=== PATIENT | female | born 1965 | race Caucasian/White ===

== ENCOUNTER 2017-06-14 15:36 | Inpatient (IN) | payer MEDICAID ==
[~2017-06-14] VITALS: Ht 147.3 cm; Wt 50.8 kg
[~2017-06-14 15:36] MED LIST: BG MC; CIPROFLOXACIN500 MG PO; GLU10 PO; LAC PO; METFORMIN HCL1000 MG PO
[2017-06-14 19:17] LABS: microscopic required? YES; urine erythrocyte 2+ (NEGATIVE)
[2017-06-14 19:18] LABS: BASOPHIL % 0.1 % (0-2); PLATELET COUNT 247 x10^3mcL (130-400); RED CELL DISTRIBUTION WIDTH 13.6 % (11.5-14.5)
[2017-06-14 20:03] LABS: FREE T4 1.4 ng/dL (0.76-1.46); FREE THYROXINE INDEX 3.1 ug/dL (1.4-4.5); T4(THYROXINE) 7.7 ug/dL (4.7-13.3)
[2017-06-14 20:05] LABS: CK-MB < 0.5 ng/mL (0-3.6); CREATINE KINASE 42 U/L (26-192)
[2017-06-14 20:20] LABS: CALCIUM 8.8 mg/dL (8.5-10.1); CARBON DIOXIDE 26.7 mmol/L (21-32); CREATININE SERUM 1.2 mg/dL (0.6-1.0); POTASSIUM SERUM 3.9 mmol/L (3.5-5.1); T3 TOTAL 0.51 ng/mL
[2017-06-14 20:22] LABS: ERYTHROCYTE SED RATE 97 mm/hr (0-30)
[2017-06-14 20:32] LABS: BILIRUBIN TOTAL 0.75 mg/dL (0.20-1.00)
[2017-06-14 20:42] LABS: C REACTIVE PROTEIN 40.2 mg/dL (<=0.9)
[2017-06-14 21:42] LABS: MAGNESIUM 2.3 mg/dL (1.8-2.4); PHOSPHOROUS 2.7 mg/dL (2.5-4.9)
[2017-06-14 21:45] LABS: CHOLESTEROL/HDL RATIO 2.7
[2017-06-14 22:05] VITALS: BP 136/79
[2017-06-14 22:11] VITALS: Ht 147.3 cm; Wt 50.8 kg
[2017-06-15] VITALS (7 sets, daily range): BP systolic 119–179; BP diastolic 66–94
[2017-06-15 06:17] LABS: BASOPHIL % 0.4 % (0-2); PLATELET COUNT 226 x10^3mcL (130-400); RED CELL DISTRIBUTION WIDTH 13.8 % (11.5-14.5)
[2017-06-15 06:43] LABS: CALCIUM 8.5 mg/dL (8.5-10.1); CARBON DIOXIDE 26.3 mmol/L (21-32); CHLORIDE SERUM 101 mmol/L (98-107); GFR1 > 60 mL/min; GLUCOSE SERUM 270 mg/dL (74-106); MAGNESIUM 2.5 mg/dL (1.8-2.4); PHOSPHOROUS 2.4 mg/dL (2.5-4.9); POTASSIUM SERUM 3.9 mmol/L (3.5-5.1); SODIUM SERUM 135 mmol/L (136-145)
[2017-06-15 07:32] LABS: AMPHETAMINE QUAL UR NONE DETECTED (NEG <=1000)
[2017-06-16 05:32] VITALS: BP 143/87
[2017-06-16 06:07] LABS: BASOPHIL % 0.2 % (0-2); PLATELET COUNT 231 x10^3mcL (130-400); RED CELL DISTRIBUTION WIDTH 13.6 % (11.5-14.5)
[2017-06-16 06:33] LABS: CALCIUM 8.3 mg/dL (8.5-10.1); CHLORIDE SERUM 104 mmol/L (98-107); CREATININE SERUM 0.8 mg/dL (0.6-1.0); GFR1 > 60 mL/min; GLUCOSE SERUM 114 mg/dL (74-106); MAGNESIUM 2.1 mg/dL (1.8-2.4); PHOSPHOROUS 2.4 mg/dL (2.5-4.9); POTASSIUM SERUM 3.4 mmol/L (3.5-5.1); SODIUM SERUM 139 mmol/L (136-145)
[2017-06-16 09:35] VITALS: BP 165/86
[2017-06-16 14:23] VITALS: BP 165/81
[2017-06-16 17:00] VITALS: BP 135/79
[2017-06-16 22:05] VITALS: BP 149/88
[2017-06-17 05:54] LABS: BASOPHIL % 0.3 % (0-2); PLATELET COUNT 249 x10^3mcL (130-400); RED CELL DISTRIBUTION WIDTH 13.5 % (11.5-14.5)
[2017-06-17 05:58] VITALS: BP 139/73
[2017-06-17] MEDS ORDERED: ZES20 PO ×2 (06:15→10:03)
[2017-06-17] MEDS ORDERED: BG FS (06:16)
[2017-06-17 06:28] LABS: CALCIUM 8.3 mg/dL (8.5-10.1); CARBON DIOXIDE 25.5 mmol/L (21-32); CHLORIDE SERUM 102 mmol/L (98-107); CREATININE SERUM 0.8 mg/dL (0.6-1.0); GFR1 > 60 mL/min; GLUCOSE SERUM 243 mg/dL (74-106); MAGNESIUM 1.6 mg/dL (1.8-2.4); PHOSPHOROUS 2.3 mg/dL (2.5-4.9); POTASSIUM SERUM 3.4 mmol/L (3.5-5.1); SODIUM SERUM 136 mmol/L (136-145)
[2017-06-17] MEDS ORDERED: [UNRECOGNIZED DRUG - OTHER] MC ×2 (07:41→07:45)
[2017-06-17] MEDS ORDERED: [UNRECOGNIZED DRUG - SUPPLY] MC ×3 (07:43→10:03)
[2017-06-17] MEDS ORDERED: LEVAQUIN750 MG PO (07:47)
[2017-06-17] MEDS ORDERED: LAC PO (10:03)
[2017-06-17] MEDS ORDERED: METFORMIN HCL1000 MG PO (10:03)
[2017-06-17] MEDS ORDERED: BG MC (10:03)
[2017-06-17] MEDS ORDERED: GLU10 PO (10:03)
[2017-06-17 10:47] VITALS: BP 129/69
[2017-06-17] MEDS ORDERED: HUMULIN R100 U/1 M1 SC (12:55)
[2017-06-17] MEDS ORDERED: ACT15 PO (12:55)
[2017-06-17] MEDS ORDERED: LEVEMIR100 U/M1 SC (12:59)
[2017-06-17 15:07] VITALS: BP 152/86
[2017-06-17 17:13] VITALS: BP 152/86
[2017-06-17 17:57] VITALS: BP 149/83
[2017-06-18] MEDS ORDERED: [UNRECOGNIZED DRUG - OTHER] MC (11:40)
[2017-06-18] MEDS ORDERED: BG MC (11:40)
[2017-06-18] MEDS ORDERED: [UNRECOGNIZED DRUG - SUPPLY] MC (11:40)
== END 2017-06-17 19:10 | disposition home or self-care (01) | DRG 720 ==
LOC: ED 15:36 → DU 20:55
PROVIDERS: Family Medicine; Specialist; ADMIT Family Medicine
DX: A41.9 Sepsis, unspecified organism (principal); N17.0 Acute kidney failure with tubular necrosis; N39.0 Urinary tract infection, site not specified; R65.20 Severe sepsis without septic shock; E87.1 Hypo-osmolality and hyponatremia; E87.6 Hypokalemia; E11.51 Type 2 diabetes mellitus with diabetic peripheral angiopathy without gangrene; E11.65 Type 2 diabetes mellitus with hyperglycemia; T38.3X6A Underdosing of insulin and oral hypoglycemic [antidiabetic] drugs, initial encounter; K76.0 Fatty (change of) liver, not elsewhere classified; K80.20 Calculus of gallbladder without cholecystitis without obstruction; Z68.23 Body mass index [BMI] 23.0-23.9, adult; Y92.009 Unspecified place in unspecified non-institutional (private) residence as the place of occurrence of the external cause
CPT/HCPCS: 36600; 82962; 83880; 84439; 87804; J0696; J1885; J2405; J7030; Q0092

== ENCOUNTER 2018-02-27 10:55 | Emergency (ER) | payer MEDICAID ==
[~2018-02-27] VITALS: Ht 152.4 cm; Wt 59.0 kg
[~2018-02-27 10:55] MED LIST changes: +ACT15 PO; +BG FS; +HUMULIN R100 U/1 M1 SC; +LEVAQUIN750 MG PO; +LEVEMIR100 U/M1 SC; +ZES20 PO; +[UNRECOGNIZED DRUG - OTHER] MC; +[UNRECOGNIZED DRUG - SUPPLY] MC
[2018-02-27 11:00] VITALS: BP 141/77; Ht 152.4 cm; Wt 59.0 kg
== END 2018-02-27 11:45 | disposition home or self-care (01) ==
LOC: ED 10:55
DX: S82.892A Other fracture of left lower leg, initial encounter for closed fracture (principal); E11.9 Type 2 diabetes mellitus without complications; X50.1XXA Overexertion from prolonged static or awkward postures, initial encounter; Y93.89 Activity, other specified; Y92.89 Other specified places as the place of occurrence of the external cause; Y99.8 Other external cause status